=== PATIENT | male | born 1960 | race Two or more races ===

== ENCOUNTER 2016-12-11 10:47 | Emergency (ER) | payer MEDICAID, OTHER ==
[~2016-12-11] VITALS: Ht 170.2 cm; Wt 96.2 kg
[~2016-12-11 10:47] MED LIST: CARI250T8; IBUP1POW8
[2016-12-11 11:08] VITALS: BP 139/93
== END 2016-12-11 11:36 | disposition home or self-care (01) ==
LOC: ER 10:47
DX: H10.213 Acute toxic conjunctivitis, bilateral (principal)

== ENCOUNTER 2022-05-02 07:55 | Emergency (ER) | payer BC, MEDICAID, OTHER ==
[~2022-05-02] VITALS: Ht 170.2 cm; Wt 96.2 kg
[~2022-05-02 07:55] MED LIST changes: +CARI250T; -CARI250T8; +IBUP1POW13; -IBUP1POW8
[2022-05-02 10:57] VITALS: BP 154/87
[2022-05-02] MEDS ORDERED: AMOX500C2 PO (14:17)
== END 2022-05-02 11:00 | disposition home or self-care (01) ==
LOC: ER 07:55
DX: K04.7 Periapical abscess without sinus (principal)

== ENCOUNTER 2022-07-05 08:19 | Emergency (ER) | payer BC ==
[~2022-07-05] VITALS: Ht 170.2 cm; Wt 97.5 kg
[~2022-07-05 08:19] MED LIST changes: +AMOX500C2 PO
[2022-07-05 09:17] LABS: Basophils # (auto) 0 10 ^3/uL (0-0.2); Basophils % (auto) 0.4 % (0.0-2.0); Eosinophils # (auto) 0.1 10 ^3/uL (0-0.8); Eosinophils % (auto) 1.4 % (0.0-7.0); Hematocrit 49.5 % (41.0-53.0); Hemoglobin 16.7 g/dL (13.5-17.5); Lymphocytes # (auto) 2.8 10 ^3/uL (0.4-5.4); Lymphocytes % (auto) 36.1 % (10.0-50.0); Mean Corpuscular Hemoglobin 31.8 pg (28.0-32.0); Mean Corpuscular Hgb Conc. 33.7 g/dL (32.0-36.0); Mean Corpuscular Volume 94.5 fL (80.0-100.0); Monocytes # (auto) 0.6 10 ^3/uL (0-1.3); Monocytes % (auto) 7.4 % (0.0-12.0); Neutrophils # (auto) 4.2 10 ^3/uL (1.6-8.6); Neutrophils % (auto) 54.7 % (37.0-80.0); Nucleated Red Blood Cells % 0.2 %; Red Blood Cells 5.24 10^6/uL (4.5-5.90); Red Cell Distribution Width 13.9 % (11.8-14.3); White Blood Cell 7.7 10^3/uL (4.4-10.8)
[2022-07-05 09:34] LABS: Albumin 3.6 g/dL (3.4-5.0); Calcium 8.4 mg/dL (8.5-10.1); Magnesium 2.1 mg/dL (1.6-2.6); Potassium 4.3 mmol/L (3.5-5.1)
[2022-07-05 09:37] LABS: BUN/Creatinine Ratio 19.8; Bilirubin, Total 0.6 mg/dL (0.2-1.0); Total Protein 7.6 g/dL (6.4-8.2)
[2022-07-05] MEDS ORDERED: ASPirin 325 MG TAB PO ONE (09:45)
[2022-07-05 13:58] VITALS: BP 156/88
== END 2022-07-05 13:28 | disposition home or self-care (01) ==
LOC: ER 08:19
DX: R07.89 Other chest pain (principal)
CPT/HCPCS: 36415; 71046; 80053; 83735; 84484; 85025; 93005

== ENCOUNTER 2023-03-06 07:09 | Emergency (ER) | payer BC ==
[~2023-03-06] VITALS: Ht 170.2 cm; Wt 101.4 kg
[2023-03-06 07:30] VITALS: BP 167/87
[2023-03-06] MEDS ORDERED: DOCU-94 PO (08:18)
[2023-03-06 08:28] LABS: Albumin 3.8 g/dL (3.4-5.0); Calcium 8.4 mg/dL (8.5-10.1); Potassium 3.8 mmol/L (3.5-5.1)
[2023-03-06 08:29] LABS: Basophils # (auto) 0 10 ^3/uL (0-0.2); Basophils % (auto) 0.4 % (0.0-2.0); Eosinophils # (auto) 0.1 10 ^3/uL (0-0.8); Eosinophils % (auto) 1.7 % (0.0-7.0); Hematocrit 47.8 % (41.0-53.0); Hemoglobin 16.5 g/dL (13.5-17.5); Lymphocytes # (auto) 2.6 10 ^3/uL (0.4-5.4); Lymphocytes % (auto) 34.8 % (10.0-50.0); Mean Corpuscular Hemoglobin 32.5 pg (28.0-32.0); Mean Corpuscular Hgb Conc. 34.4 g/dL (32.0-36.0); Mean Corpuscular Volume 94.5 fL (80.0-100.0); Monocytes # (auto) 0.5 10 ^3/uL (0-1.3); Monocytes % (auto) 7.3 % (0.0-12.0); Neutrophils # (auto) 4.2 10 ^3/uL (1.6-8.6); Neutrophils % (auto) 55.8 % (37.0-80.0); Nucleated Red Blood Cells % 0.1 %; Red Blood Cells 5.06 10^6/uL (4.5-5.90); Red Cell Distribution Width 14.2 % (11.8-14.3); White Blood Cell 7.5 10^3/uL (4.4-10.8)
[2023-03-06 08:31] LABS: BUN/Creatinine Ratio 18.3 (10.0-20.0); Bilirubin, Total 0.6 mg/dL (0.2-1.0); Total Protein 7.2 g/dL (6.4-8.2)
[2023-03-06 08:42] LABS: INR 1.02 (0.9-1.15); Partial Thromboplastin Time 29.1 sec (24.6-33.4)
== END 2023-03-06 09:24 | disposition home or self-care (01) ==
LOC: ER 07:09
DX: K59.00 Constipation, unspecified (principal); K92.1 Melena; Z79.899 Other long term (current) drug therapy; Z98.890 Other specified postprocedural states
CPT/HCPCS: 36415; 80053; 85025; 85610; 85730

== ENCOUNTER 2023-05-05 10:37 | Emergency (ER) | payer BC ==
[~2023-05-05] VITALS: Ht 170.2 cm; Wt 97.4 kg
[~2023-05-05 10:37] MED LIST changes: +DOCU-94 PO
[2023-05-05 11:17] LABS: Basophils # (auto) 0.1 10 ^3/uL (0-0.2); Basophils % (auto) 0.6 % (0.0-2.0); Eosinophils # (auto) 0.2 10 ^3/uL (0-0.8); Hemoglobin 15.6 g/dL (13.5-17.5); Lymphocytes # (auto) 2.3 10 ^3/uL (0.4-5.4); Lymphocytes % (auto) 19.1 % (10.0-50.0); Mean Corpuscular Hemoglobin 32.3 pg (28.0-32.0); Mean Corpuscular Hgb Conc. 33.8 g/dL (32.0-36.0); Mean Corpuscular Volume 95.6 fL (80.0-100.0); Monocytes # (auto) 0.7 10 ^3/uL (0-1.3); Monocytes % (auto) 5.5 % (0.0-12.0); Neutrophils # (auto) 8.8 10 ^3/uL (1.6-8.6); Neutrophils % (auto) 72.8 % (37.0-80.0); Nucleated Red Blood Cells % 0.1 %; Red Blood Cells 4.81 10^6/uL (4.5-5.90); Red Cell Distribution Width 13.7 % (11.8-14.3); White Blood Cell 12.1 10^3/uL (4.4-10.8)
[2023-05-05 11:30] LABS: Albumin 3.2 g/dL (3.4-5.0); Calcium 8.2 mg/dL (8.5-10.1); Potassium 3.7 mmol/L (3.5-5.1)
[2023-05-05 11:33] LABS: BUN/Creatinine Ratio 12.3 (10.0-20.0); Bilirubin, Total 0.8 mg/dL (0.2-1.0); Total Protein 7.8 g/dL (6.4-8.2)
[2023-05-05] MEDS ORDERED: GENT0.3S10 OP (12:09)
[2023-05-05] MEDS ORDERED: LEVO500T91 PO (12:09)
[2023-05-05 13:34] VITALS: BP 150/97
== END 2023-05-05 13:37 | disposition home or self-care (01) ==
LOC: ER 10:37
DX: J06.9 Acute upper respiratory infection, unspecified (principal); H10.9 Unspecified conjunctivitis
CPT/HCPCS: 36415; 71046; 80053; 85025; 93005